=== PATIENT | male | born 1990 | race Caucasian/White ===

== ENCOUNTER 2020-08-26 20:56 | Emergency (ER) | payer OTHER, SELFPAY ==
[2020-08-26 20:59] VITALS: BP 137/65; PULSE 79; RESP 20; TEMP 36.3; O2SAT 91
--- NOTE | 2020-08-26 21:39 | ED.PSYCH ---
HPI - Psych General Chief Complaint: Psychiatric Symptoms Stated Complaint: drug problem, hallucination Time Seen by Provider: 08/26/20 21:33 Source: patient and family Mode of arrival: ambulatory Limitations: no limitations History of Present Illness HPI Narrative: 30-year-old male Complains of paranoia and hallucinations after binging on methamphetamine Sunday and Sunday and not sleeping for the last 36 hours Denies having a psychiatric history or any issues with hallucinations when he is not under the influence of drugs No thoughts of harming himself or anyone else Per his mom he does not do meth all the time but when he does he sometimes has issues like this No other drugs that he is aware of no weed no alcohol He will be able to safely spend the night under her supervision tonight No chronic medical problems and no medical complaints Exacerbating factors: drug use Context: recent drug abuse Review of Systems Review of Systems: All systems reviewed & are unremarkable except as noted in HPI and below Constitutional: Constitutional: Denies chills and Denies fever(s) ENT: Denies dysphagia and Denies epistaxis Cardiovascular: Cardiovascular: Denies chest pain Respiratory: Respiratory: Denies dyspnea Gastrointestinal: Gastrointestinal: Denies diarrhea and Denies vomiting Integumentary/Breasts: Skin/Breast: Denies rash Neurologic: Denies headache(s) and Denies focal weakness Psychiatric: Psychiatric: Reports anxiety, Denies homicidal ideation and Denies suicidal ideation PMFSH Social History Social History Gender identity (if verbalized by the patient): Male Exam Const: General: no acute distress, well developed and alert Nutritional Appearance: well nourished Orientation/consciousness: patient oriented x3 (alert) and Other orientation findings (Alert) Limitations: no limitations HENMT: Head: normocephalic and atraumatic Ears: external ears normal General nose exam: No nasal discharge present Face and sinus: face symmetric Mouth: Yes tongue normal, Yes moist mucous membranes and Yes moist mucous membranes abnormal Throat: other (No exudate, no erythema) Eyes: Conjunctivae: conjunctivae normal (Injected) Sclera: sclerae normal EOM: EOMs intact bilaterally Neck: Neck: normal visual inspection, full ROM and supple Thyroid: thyroid normal Chest: Chest palpation & inspection: no tenderness Resp: Effort & Inspection: normal respiratory effort Auscultation: clear to auscultation bilaterally, no rales, no rhonchi, no wheezes and other (breath sounds equal) Cardio: Rate: regular rate Rhythm: regular rhythm Heart sounds: no gallops and no murmurs GI: GI Palp: No abdominal tenderness, Yes Soft to palpation and No Tenderness to palpation present (GI) Auscultation: other (bowel sounds present) Back/Spine/Pelvis: Thoracic/Lumbar Spine: thoracic and lumbar spine normal to inspection Skin: General skin exam: normal color and no rashes or lesions noted Neuro: General: patient oriented x3 (alert), moves all extremities and no focal motor deficits Cranial nerves: Yes facial symmetry Speech: normal speech Motor exam (neuro): Motor abnormalities not present Extrem: General: normal to inspection, full ROM and no pedal edema Psych: Appearance: disheveled Attitude: cooperative Thought content: Yes Paranoid delusions present Course Vital Signs Vital signs: Vital Signs Temperature 36.3 C L 08/26/20 20:59 Pulse Rate 79 08/26/20 20:59 Respiratory Rate 20 08/26/20 20:59 Blood Pressure 137/65 08/26/20 20:59 Pulse Oximetry 91 08/26/20 20:59 Temperature 36.8 C 08/26/20 22:20 Pulse Rate 79 08/26/20 22:50 Respiratory Rate 18 08/26/20 22:50 Blood Pressure 119/61 08/26/20 22:50 Pulse Oximetry 100 08/26/20 22:50 MDM - Psych MDM Narrative Medical decision making narrative: Consistent with substance-induced psychosis/mood disorder Plan screening medical labs sedatio
--- NOTE | 2020-08-26 21:50 | PC.NURSE ---
Pt stated to this nurse that he's hearing voices and has been hearing them since Sunday this week. He states he engaged in Meth (snorted) and alcohol on Sunday, but states he doesn't do them both often. Pt states when he normally does these drugs the voices go away after a day. Denies and SI or HI at this time. Mother is sitting bedside, no sitter appointed at this time.
[2020-08-26 22:04] LABS: Basophils Absolute Auto 0.1 K/mm3 (0.0-0.1); Basophils Percent Auto 0.7 % (0.2-1.2); Eosinophils Absolute Auto 0.2 K/mm3 (0-0.3); Eosinophils Percent Auto 1.7 % (0-4.4); Hematocrit 50.3 % (42.0-52.0); Hemoglobin 17.8 g/dL (14.0-18.0); Immature Granulocyte Absolute 0.05 K/mm3 (0.00-0.031); Immature Granulocyte Percent A 0.4 % (0-0.5); Lymphocytes Absolute Auto 2.67 K/mm3 (0.9-3.2); Lymphocytes Percent Auto 21.2 % (18.3-44.2); Mean Corpuscular HGB Conc 35.4 g/dl (32-36); Mean Corpuscular Hemoglobin 30.2 pg (26-34); Mean Corpuscular Volume 85.4 fl (80-100); Mean Platelet Volume 10.5 fl (7.4-10.4); Monocytes Percent Auto 7.6 % (2.6-8.5); Neutrophils Absolute Auto 8.6 K/mm3 (1.3-6.7); Neutrophils Percent Auto 68.4 % (45.5-73.1); Platelet Count Result 274 k/mm3 (150-375); Red Blood Count 5.89 M/mm3 (4.6-6.20); Red Cell Distribution Width 12.2 % (11.5-14.5); White Blood Count 12.6 K/mm3 (4.5-10.0)
[2020-08-26 22:19] LABS: Anion Gap 12 mmol/L (8-16); Blood Urea Nitrogen 20 mg/dL (9-20); Calcium 9.8 mg/dL (8.4-10.2); Carbon Dioxide 28 mmol/L (22-30); Chloride 95 mmol/L (98-107); Creatine Kinase 257 U/L (55-170); Estimated Glomerular Filt Rate > 60; Glucose 122 mg/dL (75-110); Potassium 3.7 mmol/L (3.4-5.0); Sodium 135 mmol/L (137-145)
[2020-08-26 22:20] VITALS: BP 130/72; PULSE 88; RESP 18; TEMP 36.8; O2SAT 100
[2020-08-26] MEDS: HALOPERIDOL LACTATE 5 MG/ML VIAL IM (22:46)
[2020-08-26] MEDS: LORazepam INJ (*CRX) 2 MG/ML VIAL IM (22:47)
[2020-08-26] MEDS: LACTATED RINGERS 1,000 ML 999 ML IV CONT (22:47)
[2020-08-26 22:50] VITALS: BP 119/61; PULSE 79; RESP 18; O2SAT 100
[2020-08-26 23:00] VITALS: BP 110/60; PULSE 75; RESP 18; O2SAT 99
== END 2020-08-26 23:25 | disposition home or self-care (01) ==
LOC: ANHED 21:49
PROVIDERS: Emergency Provider Emergency Medicine; PCP Family Medicine
DX: F19.951 Other psychoactive substance use, unspecified with psychoactive substance-induced psychotic disorder with hallucinations (principal)
CPT/HCPCS: 36415; 80048; 82550; 85025; 96372; 99284; J1630; J2060; J7120